=== PATIENT | female | born 1935 | race Caucasian/White ===

== ENCOUNTER 2023-09-27 18:21 | Inpatient (IN) | payer OTHER ==
[2023-09-27 19:34] LABS: BASO % 0.4 % (0-2.0); EOS % 0.4 % (0-4.5); HEMATOCRIT 29.8 % (32.4-45.2); HEMOGLOBIN 9.9 GM/dL (10.7-15.3); LYMPH % 13.2 % (8-40); MCH 29.4 pg (25.7-33.7); MCHC 33.2 g/dl (32.0-36.0); MEAN CELL VOLUME 88.5 fl (80-96); MEAN PLT VOLUME 7.3 fl (7.5-11.1); MONO % 12.6 % (3.8-10.2); NEUT % 73.4 % (42.8-82.8); PLATELET COUNT 442 10^3/uL (134-434); RBC 3.36 M/mm3 (3.60-5.2); RDW 13.2 % (11.6-15.6); WHITE BLOOD COUNT 9.5 K/mm3 (4.0-10.0)
[2023-09-27 20:00] LABS: INR 1.77 (0.83-1.09); PROTHROMBIN TIME (PATIENT) 19.7 SEC (9.7-13.0)
[2023-09-27 20:10] LABS: POTASSIUM 4.6 mmol/L (3.5-5.1)
[2023-09-27] MEDS ORDERED: COLCHICINE 0.6 MG TAB ONE (20:10)
[2023-09-27] MEDS ORDERED: FUROSEMIDE 40 MG/4 ML INJECTABLE VIAL ONE (20:10)
[2023-09-27] MEDS: FUROSEMIDE 40 MG/4 ML INJECTABLE VIAL IVPUSH ONE (20:17)
[2023-09-27 20:18] LABS: BLOOD UREA NITROGEN 24.9 mg/dL (7-18)
[2023-09-27 20:20] LABS: ALBUMIN 3.2 g/dl (3.4-5.0); MAGNESIUM 2.4 mg/dL (1.8-2.4)
[2023-09-27 20:23] LABS: BILIRUBIN,TOTAL 0.6 mg/dL (0.2-1); CREATININE 1.3 mg/dL (0.55-1.3); TOT PROT 6.6 g/dl (6.4-8.2)
[2023-09-27 20:27] LABS: N-TERMINAL BNP 10852.9 pg/ml (5-450)
[2023-09-27] MEDS: COLCHICINE 0.6 MG CAP PO ONE (20:27)
[2023-09-27 20:39] LABS: CALCIUM 8.8 mg/dL (8.5-10.1)
[2023-09-27] MEDS ORDERED: ONDANSETRON 4 MG/2 ML VIAL ONE (21:13)
[2023-09-27] MEDS: ONDANSETRON 4 MG/2 ML VIAL IVPUSH ONE (21:16)
[2023-09-27] MEDS ORDERED: MELATONIN 5 MG TABLETS ONE (22:37)
[2023-09-27] MEDS: MELATONIN 5 MG TABLETS PO ONE (22:42)
[2023-09-28] MEDS: hydrOXYzine PAMOATE 25 MG CAPSULE (FP) PO ONE (02:17)
[2023-09-28 08:01] LABS: BASO % 0.6 % (0-2.0); EOS % 0.9 % (0-4.5); HEMATOCRIT 29.2 % (32.4-45.2); HEMOGLOBIN 9.9 GM/dL (10.7-15.3); LYMPH % 12.3 % (8-40); MCH 30.3 pg (25.7-33.7); MCHC 33.9 g/dl (32.0-36.0); MEAN CELL VOLUME 89.3 fl (80-96); MEAN PLT VOLUME 7.7 fl (7.5-11.1); MONO % 13.7 % (3.8-10.2); NEUT % 72.5 % (42.8-82.8); PLATELET COUNT 461 10^3/uL (134-434); RBC 3.26 M/mm3 (3.60-5.2); RDW 12.8 % (11.6-15.6); WHITE BLOOD COUNT 9.5 K/mm3 (4.0-10.0)
[2023-09-28 08:14] LABS: POTASSIUM 4.5 mmol/L (3.5-5.1)
[2023-09-28 08:27] LABS: CREATININE 1.3 mg/dL (0.55-1.3); MAGNESIUM 2.4 mg/dL (1.8-2.4)
[2023-09-28 08:28] LABS: ALBUMIN 3.3 g/dl (3.4-5.0); BLOOD UREA NITROGEN 26.4 mg/dL (7-18); TOT PROT 6.6 g/dl (6.4-8.2)
[2023-09-28 08:31] LABS: PHOSPHOROUS 5.1 mg/dL (2.5-4.9)
[2023-09-28 08:33] LABS: BILIRUBIN,TOTAL 0.7 mg/dL (0.2-1)
[2023-09-28] MEDS: FUROSEMIDE 40 MG/4 ML INJECTABLE VIAL IVPUSH SCH (09:55)
[2023-09-28] MEDS: METOPROLOL TARTRATE 25 MG TABLET (FP) PO SCH (09:56)
[2023-09-28] MEDS: APIXABAN 5 MG TABLET PO SCH (09:56)
[2023-09-28] MEDS: COLCHICINE 0.6 MG TAB PO SCH (09:57)
[2023-09-28] MEDS: PANTOPRAZOLE 20 MG TABLET PO SCH (09:57)
[2023-09-28] MEDS ORDERED: APIXABAN 5 MG TABLET PO SCH (10:00)
[2023-09-28 13:39] LABS: EPI CELLS 7 /uL (0-25.1); HYALINE CASTS 1 /uL (0-3.1); URINE APPEARANCE CLEAR; URINE BACTERIA 15 /uL (0-1359); URINE BILIRUBIN NEGATIVE (NEGATIVE); URINE COLOR YELLOW; URINE GLUCOSE (UA) NEGATIVE (NEGATIVE); URINE KETONE TRACE (NEGATIVE); URINE LEUK ESTERASE 1+ (NEGATIVE); URINE NITRITE NEGATIVE (NEGATIVE); URINE PROTEIN NEGATIVE (NEGATIVE); URINE UROBILINOGEN 0.2 mg/dL (0.2-1.0); URINE WBC 5 /uL (0-25.8)
[2023-09-28 13:46] LABS: URINE RBC 218.2 /uL (0-23.9)
[2023-09-28] MEDS: IBUPROFEN 400 MG TABLET (FP) PO SCH (14:09)
[2023-09-28] MEDS ORDERED: LATANOPROST 0.005% OPHTH SOLN 2.5ML BOTTLE OD SCH (22:00)
[2023-09-29 08:37] LABS: BASO % 1.2 % (0-2.0); EOS % 1.1 % (0-4.5); HEMATOCRIT 30.4 % (32.4-45.2); HEMOGLOBIN 10.3 GM/dL (10.7-15.3); LYMPH % 18.4 % (8-40); MCH 30.2 pg (25.7-33.7); MEAN CELL VOLUME 88.9 fl (80-96); MEAN PLT VOLUME 7.9 fl (7.5-11.1); MONO % 15.1 % (3.8-10.2); NEUT % 64.2 % (42.8-82.8); PLATELET COUNT 519 10^3/uL (134-434); RBC 3.42 M/mm3 (3.60-5.2); RDW 13.3 % (11.6-15.6); WHITE BLOOD COUNT 9.1 K/mm3 (4.0-10.0)
[2023-09-29 08:54] LABS: POTASSIUM 4.5 mmol/L (3.5-5.1)
[2023-09-29 09:00] LABS: CALCIUM 8.7 mg/dL (8.5-10.1)
[2023-09-29 09:01] LABS: ALBUMIN 3.2 g/dl (3.4-5.0); BLOOD UREA NITROGEN 38.7 mg/dL (7-18); MAGNESIUM 2.4 mg/dL (1.8-2.4)
[2023-09-29 09:03] LABS: PHOSPHOROUS 4.9 mg/dL (2.5-4.9)
[2023-09-29 09:04] LABS: BILIRUBIN,TOTAL 0.6 mg/dL (0.2-1); CREATININE 2.1 mg/dL (0.55-1.3)
[2023-09-29 09:05] LABS: TOT PROT 6.9 g/dl (6.4-8.2)
[2023-09-29] MEDS: FUROSEMIDE 20 MG TABLET (FP) PO SCH (10:20)
[2023-09-29] MEDS: APIXABAN 2.5 MG TABLET PO SCH (22:33)
[2023-09-30 08:47] LABS: BASO % 0.8 % (0-2.0); EOS % 1.1 % (0-4.5); HEMATOCRIT 27.2 % (32.4-45.2); HEMOGLOBIN 9.2 GM/dL (10.7-15.3); LYMPH % 15.6 % (8-40); MCHC 33.8 g/dl (32.0-36.0); MEAN CELL VOLUME 88.6 fl (80-96); MEAN PLT VOLUME 7.8 fl (7.5-11.1); MONO % 15.1 % (3.8-10.2); NEUT % 67.4 % (42.8-82.8); PLATELET COUNT 475 10^3/uL (134-434); RBC 3.07 M/mm3 (3.60-5.2); RDW 12.9 % (11.6-15.6); WHITE BLOOD COUNT 9.3 K/mm3 (4.0-10.0)
[2023-09-30 09:04] LABS: POTASSIUM 4.9 mmol/L (3.5-5.1)
[2023-09-30 09:14] LABS: ALBUMIN 3.1 g/dl (3.4-5.0); CALCIUM 8.7 mg/dL (8.5-10.1); MAGNESIUM 2.6 mg/dL (1.8-2.4)
[2023-09-30 09:15] LABS: BLOOD UREA NITROGEN 51.3 mg/dL (7-18)
[2023-09-30 09:18] LABS: BILIRUBIN,TOTAL 0.5 mg/dL (0.2-1); PHOSPHOROUS 5.2 mg/dL (2.5-4.9); TOT PROT 6.6 g/dl (6.4-8.2)
[2023-09-30 12:07] LABS: BASO % 0.5 % (0-2.0); EOS % 0.8 % (0-4.5); HEMATOCRIT 26.4 % (32.4-45.2); HEMOGLOBIN 8.9 GM/dL (10.7-15.3); LYMPH % 13.3 % (8-40); MCH 30.2 pg (25.7-33.7); MCHC 33.8 g/dl (32.0-36.0); MEAN CELL VOLUME 89.3 fl (80-96); MEAN PLT VOLUME 7.8 fl (7.5-11.1); MONO % 13.9 % (3.8-10.2); NEUT % 71.5 % (42.8-82.8); PLATELET COUNT 471 10^3/uL (134-434); RBC 2.95 M/mm3 (3.60-5.2); RDW 12.9 % (11.6-15.6); WHITE BLOOD COUNT 8.1 K/mm3 (4.0-10.0)
[2023-09-30 16:42] LABS: EPI CELLS 30 /uL (0-25.1); HYALINE CASTS 4 /uL (0-3.1); PH,URINE 5.5 (5.0-8.0); URINE APPEARANCE CLEAR; URINE BACTERIA 30 /uL (0-1359); URINE BILIRUBIN NEGATIVE (NEGATIVE); URINE COLOR YELLOW; URINE GLUCOSE (UA) NEGATIVE (NEGATIVE); URINE KETONE NEGATIVE (NEGATIVE); URINE LEUK ESTERASE NEGATIVE (NEGATIVE); URINE NITRITE NEGATIVE (NEGATIVE); URINE PROTEIN 1+ (NEGATIVE); URINE RBC 15 /uL (0-23.9); URINE UROBILINOGEN 0.2 mg/dL (0.2-1.0); URINE WBC 33 /uL (0-25.8)
[2023-09-30] MEDS: MELATONIN 5 MG TABLETS PO ONE (22:52)
[2023-09-30] MEDS: SODIUM CHLORIDE 1,000 ML IV SCH (23:19)
[2023-10-01 07:51] LABS: BASO % 0.7 % (0-2.0); EOS % 0.7 % (0-4.5); HEMATOCRIT 26.8 % (32.4-45.2); LYMPH % 11.8 % (8-40); MCH 30.1 pg (25.7-33.7); MCHC 33.8 g/dl (32.0-36.0); MEAN CELL VOLUME 89.1 fl (80-96); MEAN PLT VOLUME 7.9 fl (7.5-11.1); NEUT % 74.8 % (42.8-82.8); PLATELET COUNT 456 10^3/uL (134-434); RDW 13.2 % (11.6-15.6); WHITE BLOOD COUNT 8.6 K/mm3 (4.0-10.0)
[2023-10-01 07:52] LABS: CALCIUM 8.6 mg/dL (8.5-10.1)
[2023-10-01 07:53] LABS: ALBUMIN 3.1 g/dl (3.4-5.0); BLOOD UREA NITROGEN 49.4 mg/dL (7-18); MAGNESIUM 2.7 mg/dL (1.8-2.4)
[2023-10-01 07:56] LABS: CREATININE 2.3 mg/dL (0.55-1.3); PHOSPHOROUS 4.7 mg/dL (2.5-4.9)
[2023-10-01 07:57] LABS: BILIRUBIN,TOTAL 0.6 mg/dL (0.2-1); TOT PROT 6.4 g/dl (6.4-8.2)
[2023-10-01] MEDS: FLUoxetine HCL 20 MG CAPSULE PO SCH (09:49)
[2023-10-01] MEDS: SODIUM CHLORIDE 1,000 ML IV SCH (09:50)
[2023-10-01] MEDS: MELATONIN 5 MG TABLETS PO ONE (22:28)
[2023-10-02 07:55] LABS: BASO % 0.5 % (0-2.0); EOS % 0.5 % (0-4.5); HEMATOCRIT 25.1 % (32.4-45.2); HEMOGLOBIN 8.4 GM/dL (10.7-15.3); LYMPH % 11.7 % (8-40); MCH 30.1 pg (25.7-33.7); MCHC 33.6 g/dl (32.0-36.0); MEAN CELL VOLUME 89.3 fl (80-96); MONO % 10.8 % (3.8-10.2); NEUT % 76.5 % (42.8-82.8); PLATELET COUNT 484 10^3/uL (134-434); RBC 2.81 M/mm3 (3.60-5.2); RDW 13.3 % (11.6-15.6); WHITE BLOOD COUNT 9.9 K/mm3 (4.0-10.0)
[2023-10-02 08:11] LABS: POTASSIUM 5.1 mmol/L (3.5-5.1)
[2023-10-02 08:23] LABS: ALBUMIN 3.2 g/dl (3.4-5.0)
[2023-10-02 08:26] LABS: CREATININE 1.8 mg/dL (0.55-1.3)
[2023-10-02 08:27] LABS: TOT PROT 6.8 g/dl (6.4-8.2)
[2023-10-02 08:30] LABS: BILIRUBIN,TOTAL 0.7 mg/dL (0.2-1)
[2023-10-02] MEDS: predniSONE 10 MG TABLET (UD) PO SCH (12:31)
[2023-10-02] MEDS: TRIMETHOBENZAMIDE HCL 200MG/2ML INJ IM ONE (12:37)
[2023-10-02] MEDS: MELATONIN 5 MG TABLETS PO ONE (22:30)
[2023-10-03 07:24] LABS: BASO % 0.2 % (0-2.0); EOS % 0.1 % (0-4.5); HEMATOCRIT 24.5 % (32.4-45.2); HEMOGLOBIN 8.2 GM/dL (10.7-15.3); LYMPH % 8.5 % (8-40); MCH 29.7 pg (25.7-33.7); MCHC 33.4 g/dl (32.0-36.0); MEAN CELL VOLUME 89.1 fl (80-96); MEAN PLT VOLUME 7.9 fl (7.5-11.1); MONO % 11.7 % (3.8-10.2); NEUT % 79.5 % (42.8-82.8); PLATELET COUNT 460 10^3/uL (134-434); RBC 2.74 M/mm3 (3.60-5.2); WHITE BLOOD COUNT 11.8 K/mm3 (4.0-10.0)
[2023-10-03 07:27] LABS: POTASSIUM 4.9 mmol/L (3.5-5.1)
[2023-10-03 07:32] LABS: BLOOD UREA NITROGEN 32.4 mg/dL (7-18); CALCIUM 8.6 mg/dL (8.5-10.1)
[2023-10-03 07:33] LABS: MAGNESIUM 2.4 mg/dL (1.8-2.4)
[2023-10-03 07:35] LABS: PHOSPHOROUS 3.2 mg/dL (2.5-4.9)
[2023-10-03 07:36] LABS: CREATININE 1.4 mg/dL (0.55-1.3)
[2023-10-03 07:37] LABS: BILIRUBIN,TOTAL 0.6 mg/dL (0.2-1); TOT PROT 6.4 g/dl (6.4-8.2)
[2023-10-03] MEDS: MELATONIN 5 MG TABLETS PO PRN (22:03)
[2023-10-04 07:56] LABS: BASO % 0.5 % (0-2.0); EOS % 0.1 % (0-4.5); LYMPH % 11.2 % (8-40); MCHC 33.5 g/dl (32.0-36.0); MEAN CELL VOLUME 89.7 fl (80-96); MEAN PLT VOLUME 8.1 fl (7.5-11.1); MONO % 12.1 % (3.8-10.2); NEUT % 76.1 % (42.8-82.8); PLATELET COUNT 470 10^3/uL (134-434); RBC 2.68 M/mm3 (3.60-5.2); RDW 13.3 % (11.6-15.6); WHITE BLOOD COUNT 12.3 K/mm3 (4.0-10.0)
[2023-10-04 08:21] LABS: POTASSIUM 4.7 mmol/L (3.5-5.1)
[2023-10-04 08:24] LABS: CALCIUM 8.8 mg/dL (8.5-10.1)
[2023-10-04 08:25] LABS: ALBUMIN 3.3 g/dl (3.4-5.0); BLOOD UREA NITROGEN 28.3 mg/dL (7-18); MAGNESIUM 2.6 mg/dL (1.8-2.4)
[2023-10-04 08:27] LABS: PHOSPHOROUS 2.9 mg/dL (2.5-4.9)
[2023-10-04 08:28] LABS: CREATININE 1.4 mg/dL (0.55-1.3)
[2023-10-04 08:29] LABS: BILIRUBIN,TOTAL 0.7 mg/dL (0.2-1); TOT PROT 6.7 g/dl (6.4-8.2)
[2023-10-04 14:55] VITALS: BMI 35.7
[2023-10-04] MEDS: FUROSEMIDE 40 MG/4 ML INJECTABLE VIAL IVPUSH ONE (16:22)
[2023-10-05] MEDS: FUROSEMIDE 20 MG TABLET (FP) PO SCH (12:42)
[2023-10-05 16:20] LABS: BASO % 0.1 % (0-2.0); HEMATOCRIT 27.8 % (32.4-45.2); HEMOGLOBIN 9.5 GM/dL (10.7-15.3); LYMPH % 5.1 % (8-40); MCH 29.9 pg (25.7-33.7); MCHC 34.2 g/dl (32.0-36.0); MEAN CELL VOLUME 87.4 fl (80-96); MONO % 8.4 % (3.8-10.2); NEUT % 86.4 % (42.8-82.8); PLATELET COUNT 527 10^3/uL (134-434); RBC 3.18 M/mm3 (3.60-5.2); RDW 13.2 % (11.6-15.6); WHITE BLOOD COUNT 11.5 K/mm3 (4.0-10.0)
[2023-10-05 17:08] LABS: ALBUMIN 3.1 g/dl (3.4-5.0); BLOOD UREA NITROGEN 28.6 mg/dL (7-18); CALCIUM 8.8 mg/dL (8.5-10.1); MAGNESIUM 2.1 mg/dL (1.8-2.4)
[2023-10-05 17:11] LABS: CREATININE 1.5 mg/dL (0.55-1.3); PHOSPHOROUS 3.1 mg/dL (2.5-4.9)
[2023-10-05 17:13] LABS: BILIRUBIN,TOTAL 0.9 mg/dL (0.2-1); TOT PROT 6.4 g/dl (6.4-8.2)
[2023-10-06 09:22] LABS: HEMATOCRIT 28.3 % (32.4-45.2); HEMOGLOBIN 9.7 GM/dL (10.7-15.3); MCH 30.2 pg (25.7-33.7); MCHC 34.2 g/dl (32.0-36.0); MEAN CELL VOLUME 88.1 fl (80-96); MEAN PLT VOLUME 7.7 fl (7.5-11.1); PLATELET COUNT 544 10^3/uL (134-434); RBC 3.21 M/mm3 (3.60-5.2); RDW 13.3 % (11.6-15.6); WHITE BLOOD COUNT 9.7 K/mm3 (4.0-10.0)
[2023-10-06] MEDS: predniSONE 10 MG TABLET (UD) PO SCH (09:45)
[2023-10-06 09:54] LABS: ALBUMIN 3.1 g/dl (3.4-5.0); BLOOD UREA NITROGEN 23.8 mg/dL (7-18); MAGNESIUM 1.9 mg/dL (1.8-2.4)
[2023-10-06 09:57] LABS: CREATININE 1.5 mg/dL (0.55-1.3); PHOSPHOROUS 2.6 mg/dL (2.5-4.9)
[2023-10-06 09:58] LABS: BILIRUBIN,TOTAL 0.9 mg/dL (0.2-1); TOT PROT 6.3 g/dl (6.4-8.2)
[2023-10-07] MEDS: LEVOTHYROXINE NA 25 MCG TABLET (FP) PO SCH (06:25)
[2023-10-07 07:54] LABS: ALBUMIN 3.2 g/dl (3.4-5.0); CALCIUM 8.9 mg/dL (8.5-10.1)
[2023-10-07 07:55] LABS: BLOOD UREA NITROGEN 24.9 mg/dL (7-18); MAGNESIUM 1.9 mg/dL (1.8-2.4)
[2023-10-07 07:56] LABS: BASO % 0.1 % (0-2.0); EOS % 0.4 % (0-4.5); HEMATOCRIT 27.9 % (32.4-45.2); HEMOGLOBIN 9.4 GM/dL (10.7-15.3); LYMPH % 13.5 % (8-40); MCH 29.9 pg (25.7-33.7); MCHC 33.8 g/dl (32.0-36.0); MEAN CELL VOLUME 88.5 fl (80-96); MEAN PLT VOLUME 7.9 fl (7.5-11.1); MONO % 13.2 % (3.8-10.2); NEUT % 72.8 % (42.8-82.8); PLATELET COUNT 555 10^3/uL (134-434); RBC 3.15 M/mm3 (3.60-5.2); RDW 12.9 % (11.6-15.6)
[2023-10-07 07:58] LABS: CREATININE 1.3 mg/dL (0.55-1.3); PHOSPHOROUS 3.1 mg/dL (2.5-4.9)
[2023-10-07 07:59] LABS: BILIRUBIN,TOTAL 1.2 mg/dL (0.2-1); TOT PROT 6.3 g/dl (6.4-8.2)
[2023-10-07 16:28] VITALS: BP 138/75; PULSE 79; RESP 18; TEMP 97.9
== END 2023-10-07 16:28 | disposition home or self-care (01) | DRG 314 ==
LOC: JER 18:21 → JERBED 19:17 → J4W 23:49
PROVIDERS: ADMIT Internal Medicine; ATTEND Internal Medicine
DX: I31.9 Disease of pericardium, unspecified (principal); I50.31 Acute diastolic (congestive) heart failure; N17.9 Acute kidney failure, unspecified; I13.0 Hypertensive heart and chronic kidney disease with heart failure and stage 1 through stage 4 chronic kidney disease, or unspecified chronic kidney disease; E03.9 Hypothyroidism, unspecified; R79.89 Other specified abnormal findings of blood chemistry; H40.9 Unspecified glaucoma; I48.0 Paroxysmal atrial fibrillation; E04.1 Nontoxic single thyroid nodule; N18.9 Chronic kidney disease, unspecified; D75.839 Thrombocytosis, unspecified
CPT/HCPCS: 0241U-QW; 36415; 71045-TC-FY; 76700-TC; 76775-TC; 80053; 80061; 81003; 82340; 82570; 83735; 83880; 84100; 84300; 84439; 84443; 84484; 85025; 85027; 85610; 85651; 85730; 86140; 93005; 93010; 93306-TC; 97116-GP; 97162-GP; 99285-25